=== PATIENT | male | born 1975 | race Two or more races ===

== ENCOUNTER 2020-07-02 12:12 | Emergency (ER) | payer OTHER ==
[2020-07-02 12:59] VITALS: TEMP 97.8; BMI 27.4
[2020-07-02] MEDS ORDERED: LIDOCAINE 5% TOPICAL PATCH TP ONE (13:01)
[2020-07-02] MEDS ORDERED: LIDOCAINE 5% TOPICAL PATCH ONE ×2 (13:08→13:14)
[2020-07-02 13:40] VITALS: BP 102/72; PULSE 76
[2020-07-02] MEDS ORDERED: KETOROLAC TROMETHAMINE 30 MG/1 ML VIAL IM ONE (13:48)
[2020-07-02] MEDS ORDERED: DEXAMETHASONE SOD PHOSPHATE 4 MG/1 ML VIAL IM ONE (13:49)
[2020-07-02] MEDS ORDERED: KETOROLAC TROMETHAMINE 30 MG/1 ML VIAL ONE (13:52)
[2020-07-02] MEDS ORDERED: DEXAMETHASONE SOD PHOSPHATE 4 MG/1 ML VIAL ONE (13:52)
[2020-07-02] MEDS ORDERED: LIDOCAINE PATCH REMOVAL MC ONE (22:00)
== END 2020-07-02 15:16 | disposition home or self-care (01) ==
LOC: JER 12:12
PROC: 3E023GC Introduction of Other Therapeutic Substance into Muscle, Percutaneous Approach (ICD-10-PCS; principal; 2020-07-02)
PROC: 3E0233Z Introduction of Anti-inflammatory into Muscle, Percutaneous Approach (ICD-10-PCS; 2020-07-02)
DX: M54.5 Low back pain (principal)
CPT/HCPCS: 99284-25